=== PATIENT | male | born 1950 ===

== ENCOUNTER 2017-07-13 16:14 | Emergency (ER) | payer MEDICARE, MEDICAID ==
[2017-07-13] MEDS ORDERED: Ondansetron ODT TAB* 4 MG PO ONE (17:01)
--- NOTE | 2017-07-13 17:03 | UC ---
UC General HPI - HPI Summary HPI Summary: pt is c/o vomiting and diarrhea. sudden onset around 2am. admits to abdominal cramping with the diarrhea, denies abdominal pain. no fever, travel hx and recent antibiotic use. no blood in vomit/stool and no hx IBD or diverticulitis. no v/d since this afternoon. self tx peptobismal and it helped. - History of Current Complaint Stated Complaint: DIARRHEA, EMESIS Time Seen by Provider: 07/13/17 16:46 Hx Obtained From: Patient Onset/Duration: Sudden Onset Pain Intensity: 0 Aggravating: nothing Alleviating: nothing Associated Signs & Symptoms: Positive: Diarrhea, Nausea, Vomiting. Negative: Abdominal Pain, Fever - Allergy/Home Medications Allergies/Adverse Reactions: Allergies Allergy/AdvReac Type Severity Reaction Status Date / Time No Known Allergies Allergy Verified 07/13/17 16:54 Home Medications: Home Medications Atorvastatin* [Lipitor*] 20 mg PO DAILY 07/13/17 [History Confirmed 07/13/17] Calcium Carbonate/Vitamin D3 [Calcium Carbonate/Vitamin] 1 tab PO DAILY [History Confirmed 07/13/17] Colesevelam(NF) [Welchol(NF)] 3 tab PO BID 07/13/17 [History Confirmed 07/13/17] Ergocalciferol (Vitamin D2) [Vitamin D2] 1 tab WEEKLY 07/13/17 [History Confirmed 07/13/17] Lisinopril TAB* [Prinivil TAB*] 10 mg PO DAILY 07/13/17 [History Confirmed 07/13] Multivitamins/Minerals TAB* [Theragran/minerals TAB*] 1 tab PO DAILY 07/13/17 [ History Confirmed 07/13/17] Sitagliptin (NF) [Januvia (NF)] 50 mg PO DAILY 07/13/17 [History Confirmed 07/13] glipiZIDE [Glipizide ER] 5 mg PO DAILY 07/13/17 [History Confirmed 07/13/17] metFORMIN* [Glucophage 500 MG TAB *] 3 tab PO SEE INSTRUCTIONS 07/13/17 [ History Confirmed 07/13/17] PMH/Surg Hx/FS Hx/Imm Hx Endocrine History: Dyslipidemia - Surgical History Surgical History: Yes Surgery Procedure, Year, and Place: gallbladder - Social History Occupation: Employed Part-time Alcohol Use: None Substance Use Type: None Smoking Status (MU): Former Smoker - Immunization History Vaccination Up to Date: Yes Review of Systems Constitutional: Negative Skin: Negative Eyes: Negative ENT: Negative Respiratory: Negative Cardiovascular: Negative Gastrointestinal: Vomiting, Diarrhea, Nausea Genitourinary: Negative Motor: Negative Neurovascular: Negative Musculoskeletal: Negative Neurological: Negative Psychological: Negative Is Patient Immunocompromised?: No All Other Systems Reviewed And Are Negative: Yes Physical Exam Triage Information Reviewed: Yes Appearance: Well-Appearing Vital Signs: Initial Vital Signs Temp 98.7 F 07/13/17 16:47 Pulse 96 07/13/17 16:47 Resp 18 07/13/17 16:47 BP 125/65 07/13/17 16:47 Pulse Ox 98 07/13/17 16:47 Vital Signs Reviewed: Yes Eyes: Positive: Conjunctiva Clear ENT: Positive: Normal ENT inspection Neck: Positive: Supple, Nontender, No Lymphadenopathy Respiratory: Positive: Lungs clear, Normal breath sounds Cardiovascular: Positive: RRR, No Murmur Abdomen Description: Positive: Nontender, No Organomegaly, Soft. Negative: Distended, Guarding Bowel Sounds: Positive: Present Musculoskeletal: Positive: ROM Intact Neurological: Positive: Alert Psychological: Positive: Age Appropriate Behavior Skin Exam: Normal Re-Evaluation - Re-Evaluation Second Eval Change: Improved - nausea resolved. no diarrhea here. drinking gingerale with no nausea. Course/Dx - Course Course Of Treatment: non toxic, no acute abdomen. no concern for c-diff colitis. tx supportive - Differential Dx - Multi-Symptom Provider Diagnoses: vomiting. diarrhea Discharge - Sign-Out/Discharge Documenting (check all that apply): Discharge - Discharge Plan Condition: Stable Disposition: HOME Patient Education Materials: Acute Nausea and Vomiting (ED), Acute Diarrhea (ED ) Referrals: Wen Valadez MD [Primary Care Provider] - 3 Days - Billing Disposition and Condition Condition: STABLE Disposition: HOME
== END 2017-07-13 17:48 | disposition home or self-care (01) ==
LOC: UCCORT 16:14
DX: R11.11 Vomiting without nausea (principal); R19.7 Diarrhea, unspecified; E78.5 Hyperlipidemia, unspecified; Z87.891 Personal history of nicotine dependence
CPT/HCPCS: 99202; A9270-GY; G0463